=== PATIENT | female | born 1955 | race Caucasian/White ===

== ENCOUNTER 2019-03-04 06:31 | Day surgery (SDC) | payer MEDICARE, OTHER ==
[2019-03-04] MEDS ORDERED: Sodium Tetradecyl Sulfate 1% 20 MG/2 ML SDV ONE (06:46)
[2019-03-04] MEDS ORDERED: Sodium Chloride 0.9% 10 ML ONE (06:46)
[2019-03-04] MEDS ORDERED: Lidocaine 1% with EPINEPHrine 1:100,000 50 ML MDV ONE (06:47)
[2019-03-04] MEDS ORDERED: Sodium Chloride 0.9% 1,000 ML IV SCH (07:00)
[2019-03-04] MEDS ORDERED: Midazolam 1 MG/ML 2 ML SDV ONE (07:26)
[2019-03-04] MEDS ORDERED: Propofol 200 MG/20 ML SDV ONE ×2 (07:26→08:23)
[2019-03-04] MEDS ORDERED: fentaNYL 100 MCG/2 ML SDV ONE (07:26)
[2019-03-04] MEDS: Lidocaine 1% w/EPINEPHrine 50 ML, Sodium Bicarbonate 5 MEQ in Sodium Chloride 0.9% 950 ML INJECT SCH ×2 (08:05→08:45)
--- NOTE | 2019-03-05 08:50 | OR ---
DATE OF PROCEDURE: 03/04/2019 SURGEON: Anton Mooney MD PROCEDURES: 1. Radiofrequency ablation of left greater saphenous vein. 2. Radiofrequency ablation of right greater saphenous vein. 3. Sclerotherapy left leg, multiple. 4. Sclerotherapy right leg, multiple. 5. Compression wrap, left leg ([id number]). 6. Compression wrap, right leg ([id number]). COMPLICATIONS: None. THREAD CUTTER: None. ANESTHETIC: Mac/local. PREOPERATIVE DIAGNOSIS: Venous insufficiency with inflammation and pain. POSTOPERATIVE DIAGNOSIS: Venous insufficiency with inflammation and pain. RISKS: Risks, benefits, alternatives, and limitations including, but limited to infection, bleeding, perforation, and DVT formation were explained to the patient who wished to proceed. PROCEDURE IN DETAIL: The patient was placed in supine position. The left GSV was accessed at the level of the lower leg using a 21-gauge needle exchanged for a 35,000th wire, then exchanged for a 7-Tristanian sheath. RFA probe was advanced to greater than 3 cm from the saphenofemoral junction. Tumescent fluid was injected in a 1-cm jacket around this and verified a second and a third time. The probe was deployed x2 proximally and distally and x1 in all other segments. Direct even pressure was held as the probe was deployed. The right leg was then performed in same manner, same fashion, same technique, in the same sequence using the same equipment. Sclerotherapy was then performed on left and right legs using 0.33% sodium tetradecyl. This was drawn back to ensure intravascular injection only. No more than 2 mL was injected in one location, 4 on the right and 4 on the left. Two-layer two-stage compression wrapping was then performed in a [id number] fashion. Distal-to proximal gradient with 20 mmHg pressure. The patient tolerated the procedure well. Anton Mooney MD /[id number]
== END 2019-03-04 11:23 | disposition home or self-care (01) ==
LOC: JP.SDS 06:31
PROVIDERS: ATTEND Surgery
DX: I83.12 Varicose veins of left lower extremity with inflammation (principal); I83.11 Varicose veins of right lower extremity with inflammation; I83.813 Varicose veins of bilateral lower extremities with pain; I10 Essential (primary) hypertension; F41.9 Anxiety disorder, unspecified; Z79.82 Long term (current) use of aspirin; Z79.899 Other long term (current) drug therapy
CPT/HCPCS: 36471; 36475; J1642; J2250; J2704; J3010; J7030; J3490

== ENCOUNTER 2020-02-09 19:15 | Emergency (ER) | payer MEDICARE, OTHER ==
--- NOTE | 2020-02-09 20:12 | EDM.PDOC ---
ED HPI GENERAL MEDICAL PROBLEM - General Chief Complaint: Lower Extremity Injury/Pain Stated Complaint: FALL Time Seen by Provider: 02/09/20 20:07 Source of Information: Reports: Patient History Limitations: Reports: No Limitations - History of Present Illness INITIAL COMMENTS - FREE TEXT/NARRATIVE: pt was going up the steps and fell and landed on her left knee. She now has sw elling. over the left knee cap. She did have a total joint done about 3 years ago. Onset: Today, Other ( happened about 7 pm. She is now developing swelling over the knee cap area. 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: , 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 (See Below) 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 OPERATOR 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: 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 Musculoskeletal History: Reports: Arthritis, Fracture Psychiatric History: Reports: Anxiety - Past Surgical History Female Surgical History: Reports: Hysterectomy Musculoskeletal Surgical History: Reports: Arthroscopic Knee, Knee Replacement Other Musculoskeletal Surgeries/Procedures:: left knee replacement Social & Family History - Family History Family Medical History: Unobtainable - Tobacco Use Smoking Status *Q: Current Every Day Smoker Years of Tobacco use: 50 Packs/Tins Daily: 0.1 - Caffeine Use Caffeine Use: Reports: Coffee - Recreational Drug Use Recreational Drug Use: No Review of Systems - Review of Systems Review Of Systems: See Below Constitutional: Reports: No Symptoms Eyes: Reports: No Symptoms Ears: Reports: No Symptoms Nose: Reports: No Symptoms Mouth/Throat: Reports: No Symptoms Respiratory: Reports: No Symptoms Cardiovascular: Reports: No Symptoms GI/Abdominal: Reports: No Symptoms Genitourinary: Reports: No Symptoms Musculoskeletal: Reports: Other ( swelling over the left knee cap area. ) Skin: Reports: No Symptoms ED EXAM, GENERAL - Physical Exam Exam: See Below Free Text/Narrative:: pt arrived with swelling in the area belo the knee cap. Exam Limited By: No Limitations General Appearance: Alert, Anxious, Mild Distress Extremities: Other (pt has good range of motion of the knee. She is not having alot of pain with weight bearing. Pt had a total knee done 3 years ago. ) Course - Vital Signs Last Recorded V/S: Last Vital Signs Temp 36.5 C 02/09/20 19:32 Pulse 98 02/09/20 19:32 Resp 16 02/09/20 19:32 BP 186/106 H 02/09/20 19:32 Pulse Ox 99 02/09/20 19:32 - Orders/Labs/Meds Orders: Active Orders 24 hr Category Date Time Status Knee Min 4V Lt [CR] Stat Exams 02/09/20 20:04 Taken - Re-Assessments/Exams Free Text/Narrative Re-Assessment/Exam: 02/09/20 21:11 xray showed good position of the hardware, no fractures seen, Hematoma present below the knee cap. Departure - Departure Time of Disposition: 21:04 Disposition: Home, Self-Care 01 Condition: Fair Clinical Impression: Hematoma of left knee region - Discharge Information Instructions: Contusion, [id number] Referrals: Ike Huerta MD [Primary Care Provider] - Forms: ED Department Discharge Care Plan Goals: cool pack, limited weight bearing for the next 24 hours, the area will look bruised After the first 24-36 hours may ambulate as usual. Sepsis Event Note (ED) - Evaluation Sepsis Screening Result: No Definite Risk - Focused Exam Vital Signs: Vital Signs Temp Pulse Resp BP Pulse Ox 02/09/20 19:32 36.5 C 98 16 186/106 H 99 - My Orders Last 24 Hours: My Active Orders 02/09/20 20:04 Knee Min 4V Lt [CR] Stat - Assessment/Plan Last 24 Hours: My Active Orders 02/09/20 20:04 Knee Min 4V Lt [CR] Stat
--- NOTE | 2020-02-10 08:55 | CR ---
Knee Min 4V Lt CLINICAL HISTORY: Swelling near knee cap FINDINGS: Patient is a 3 component total knee arthroplasty. Components appear well seated. Impression: 3 component total knee arthroplasty appears intact
== END 2020-02-09 21:13 | disposition home or self-care (01) ==
LOC: JP.ED 19:15
DX: S80.02XA Contusion of left knee, initial encounter (principal); I10 Essential (primary) hypertension; F41.9 Anxiety disorder, unspecified; F17.210 Nicotine dependence, cigarettes, uncomplicated; Z79.899 Other long term (current) drug therapy; Z90.710 Acquired absence of both cervix and uterus; W10.9XXA Fall (on) (from) unspecified stairs and steps, initial encounter
CPT/HCPCS: 73564-26-LT; 73564-LT; 99283-25

== ENCOUNTER 2020-10-22 09:52 | Inpatient (IN) | payer MEDICARE, OTHER ==
--- NOTE | 2020-10-22 10:44 | EDM.PDOC ---
ED HPI GENERAL MEDICAL PROBLEM - General Chief Complaint: Abdominal Pain Stated Complaint: LOW STOMACH PAIN Time Seen by Provider: 10/22/20 10:30 Source of Information: Reports: Patient, Family History Limitations: Reports: No Limitations - History of Present Illness INITIAL COMMENTS - FREE TEXT/NARRATIVE: 65-year-old female with left lower quadrant pain for the past 4 days, she had a significant flareup of pain 4 days ago which with a fever, but it seemed to improve over the next couple days but over the last 12 to 24 hours has gotten much worse. She has a history of diverticulitis, it feels similar. Mild nausea, no vomiting, some radiation of pain to the back, she is still having bowel movements but it is painful. No blood in the stool. Duration: Waxing/Waning Location: Reports: Abdomen (Especially left lower quadrant) Associated Symptoms: Reports: Fever/Chills, Loss of Appetite, Malaise - Related Data Allergies Allergy/AdvReac Type Severity Reaction Status Date / Time No Known Allergies Allergy Verified 02/09/20 19:27 Home Meds: Home Meds buPROPion HCL [Wellbutrin Xl] 150 mg PO DAILY 03/02/19 [History] traMADol [Ultram] 50 mg PO Q6H PRN 03/02/19 [History] Lisinopril 20 mg PO DAILY 03/04/19 [History] Acetaminophen [Tylenol Extra Strength] 1,000 mg PO ASDIRECTED 10/22/20 [History] Past Medical History HEENT History: Reports: Sinusitis Cardiovascular History: Reports: Hypertension Gastrointestinal History: Reports: Diverticulosis 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: , 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 (See Below) 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 TRAINING 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 SPECIALIST History: 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 Musculoskeletal History: Reports: Arthritis, Fracture Psychiatric History: Reports: Anxiety - Past Surgical History GI Surgical History: Reports: Colonoscopy Female Surgical History: Reports: Hysterectomy Musculoskeletal Surgical History: Reports: Arthroscopic Knee, Knee Replacement Other Musculoskeletal Surgeries/Procedures:: left knee replacement Social & Family History - Family History Family Medical History: Unobtainable - Tobacco Use Tobacco Use Status *Q: Never Tobacco User - Caffeine Use Caffeine Use: Reports: Coffee ED ROS GENERAL - Review of Systems Review Of Systems: See Below Constitutional: Reports: Fever, Chills, Malaise, Decreased Appetite Respiratory: Denies: Shortness of Breath Cardiovascular: Denies: Chest Pain GI/Abdominal: Reports: Abdominal Pain, Nausea. Denies: Constipation, Diarrhea, Hematochezia, Vomiting : Reports: No Symptoms Skin: Denies: Rash Neurological: Reports: Other (Has been having some increased sciatic issues over the past week) ED EXAM, GI/ABD - Physical Exam Exam: See Below Exam Limited By: No Limitations General Appearance: Alert, Anxious, Mild Distress Eyes: Bilateral: Normal Appearance (No jaundice) Head: Atraumatic Respiratory/Chest: No Respiratory Distress, Lungs Clear Cardiovascular: Regular Rate, Rhythm. No: Tachycardia GI/Abdominal Exam: Rebound, Tender, Other (Very tender abdomen, significant guarding and rebound tenderness across the left abdomen especially the left lower quadrant. She has unnoticeable mass in the left inguinal area that is very tender, an obvious incarcerated hernia) Extremities: No: Pedal Edema Neurological: Alert, Oriented Psychiatric: Anxious Skin Exam: Warm, Dry Course - Vital Signs Last Recorded V/S: Last Vital Signs Temp 95.9 F L 10/22/20 16:20 Pulse 73 10/22/20 16:20 Resp 16 10/22/20 16:20 BP 143/56 H 10/22/20 16:20 Pulse Ox 94 L 10/22/20 16:21 - Orders/Labs/Meds Orders: Active Orders 24 hr Category Date Time Status CULTURE ANAEROBIC [RM] Routine Lab 10/22/20 14:09 Received CULTURE WOUND + SMEAR [RM] Routine Lab 10/22/20 14:02 Results Medication Orders Acetaminophen (Acetaminophen 500 Mg Tab) 1,000 mg PO Q8H GILDARDO Acetaminophen (Acetaminophen 500 Mg Tab) 500 mg PO Q8H PRN PRN Reason: MILD PAIN Bupropion HCl (Bupropion 150 Mg Tab.Er) 150 mg PO DAILY GILDARDO Celecoxib (Celecoxib 200 Mg Cap) 200 mg PO BID GILDARDO Cyclobenzaprine HCl (Cyclobenzaprine 10 Mg Tab) 10 mg PO Q8H PRN PRN Reason: Muscle Spasm Diphenhydramine HCl (Diphenhydramine 50 Mg/Ml Sdv) 50 mg IVPUSH Q4H PRN PRN Reason: ITCHING Hydromorphone HCl (Hydromorphone/Normal Saline 15 Mg/30 Ml Swamper) 0 mg IV ASDIRECTED PRN; Protocol PRN Reason: WINDOW SHADE RING SEWER PAIN CONTROL Last Admin: 10/22/20 16:14 Dose: 15 mg Documented by: SWANRHO Hydroxyzine HCl (Hydroxyzine Hcl 100 Mg/2 Ml Sdv) 100 mg IM Q4H PRN PRN Reason: breakthrough pain Meropenem 500 mg/ Sodium (Chloride) 50 mls @ 100 mls/hr IV Q6H [facility] Stop: 10/23/20 18:59 Dextrose/Lactated Ringer's (Dextrose 5%-Lactated Ringers) 1,000 mls @ 150 mls/hr IV ASDIRECTED [facility] Multivitamins/Minerals 10 ml/Thiamine HCl 200 mg/ Zinc 1 ml / Dextrose/Lactated Ringer's 1,013 mls @ 150 mls/hr IV DAILY@1600 [facility] Stop: 10/23/20 22:46 Labetalol HCl (Labetalol 20 Mg/4 Ml Syringe) 5 mg IVPUSH Q5M PRN PRN Reason: SBP over 160 OR DBP over 95 Lisinopril (Lisinopril 20 Mg Tab) 20 mg PO DAILY [facility] Metoclopramide HCl (Metoclopramide 10 Mg/2 Ml Sdv) 10 mg IVPUSH Q6H PRN PRN Reason: NAUSEA NOT CONTROL BY ZOFRAN Naloxone HCl (Naloxone 0.4 Mg/Ml Sdv) 0.1 mg IV ASDIRECTED PRN PRN Reason: decreased respiratory rate Ondansetron HCl (Ondansetron 4 Mg/2 Ml Sdv) 4 mg IVPUSH Q4H PRN PRN Reason: Nausea/Vomiting Pantoprazole Sodium (Pantoprazole 40 Mg Vial) 40 mg IVPUSH Q24H [facility] Labs: Laboratory Tests 10/22/20 10/22/20 Range/Units 10:50 10:50 WBC 8.0 (4.5-11.0) K/uL RBC 4.56 (3.30-5.50) M/uL Hgb 13.6 (12.0-15.0) g/dL Hct 42.1 (36.0-48.0) % MCV 92 (80-98) fL MCH 30 (27-31) pg MCHC 32 (32-36) % Plt Count 265 (150-400) K/uL Neut % (Auto) 79 H (36-66) % Lymph % (Auto) 13 L (24-44) % [place] % (Auto) 6 (2-6) % Eos % (Auto) 1 L (2-4) % Baso % (Auto) 0 (0-1) % Sodium 146 (140-148) mmol/L Potassium 4.7 (3.6-5.2) mmol/L Chloride 106 (100-108) mmol/L Carbon Dioxide 25 (21-32) mmol/L Anion Gap 15.3 H (5.0-14.0) mmol/L BUN 30 H (7-18) mg/dL Creatinine 1.2 H (0.6-1.0) mg/dL Est Cr Clr Drug Dosing 44.24 mL/min Estimated GFR (MDRD) 45 L (>60) Glucose 126 H (74-106) mg/dL Calcium 9.1 (8.5-10.1) mg/dL Meds: Medications Generic Name Dose Route Start Last Admin Trade Name Freq PRN Reason Stop Dose Admin Acetaminophen 1,000 mg 10/22/20 18:00 Acetaminophen 500 Mg Tab PO Q8H [facility] Acetaminophen 500 mg 10/22/20 17:00 Acetaminophen 500 Mg Tab PO Q8H PRN MILD PAIN Bupropion HCl 150 mg 10/23/20 09:00 Bupropion 150 Mg Tab.Er PO DAILY [facility] Celecoxib 200 mg 10/23/20 09:00 Celecoxib 200 Mg Cap PO BID [facility] Cyclobenzaprine HCl 10 mg 10/22/20 16:15 Cyclobenzaprine 10 Mg Tab PO Q8H PRN Muscle Spasm Diphenhydramine HCl 50 mg 10/22/20 17:00 Diphenhydramine 50 Mg/Ml Sdv IVPUSH Q4H PRN ITCHING Hydromorphone HCl 0 mg 10/22/20 16:13 10/22/20 16:14 Hydromorphone/Normal Saline 15 Mg/30 Ml Swamper IV 15 mg ASDIRECTED PRN Administration WINDOW SHADE RING SEWER PAIN CONTROL Protocol Hydroxyzine HCl 100 mg 10/22/20 17:00 Hydroxyzine Hcl 100 Mg/2 Ml Sdv IM Q4H PRN breakthrough pain Meropenem 500 mg/ Sodium 50 mls @ 100 mls/hr 10/22/20 18:30 Chloride IV 10/23/20 18:59 Q6H [facility] Dextrose/Lactated Ringer's 1,000 mls @ 150 mls/hr 10/22/20 16:15 Dextrose 5%-Lactated Ringers IV ASDIRECTED [facility] Multivitamins/Minerals 10 ml/ 1,013 mls @ 150 mls/hr 10/22/20 17:00 Thiamine HCl 200 mg/ Zinc 1 ml IV 10/23/20 22:46 / Dextrose/Lactated Ringer's DAILY@1600 [facility] Labetalol HCl 5 mg 10/22/20 17:00 Labetalol 20 Mg/4 Ml Syringe IVPUSH Q5M PRN SBP over 160 OR DBP over 95 Lisinopril 20 mg 10/23/20 09:00 Lisinopril 20 Mg Tab PO DAILY [facility] Metoclopramide HCl 10 mg 10/22/20 17:00 Metoclopramide 10 Mg/2 Ml Sdv IVPUSH Q6H PRN NAUSEA NOT CONTROL BY ZOFRAN Naloxone HCl 0.1 mg 10/22/20 17:00 Naloxone 0.4 Mg/Ml Sdv IV ASDIRECTED PRN decreased respiratory rate Ondansetron HCl 4 mg 10/22/20 17:00 Ondansetron 4 Mg/2 Ml Sdv IVPUSH Q4H PRN Nausea/Vomiting Pantoprazole Sodium 40 mg 10/22/20 17:00 Pantoprazole 40 Mg Vial IVPUSH Q24H [facility] Discontinued Medications Generic Name Dose Route Start Last Admin Trade Name Freq PRN Reason Stop Dose Admin Ropivacaine 40 ml/ 0 ml 10/22/20 14:00 10/22/20 14:00 Dexamethasone 8 mg/ NERVRT 80 syringe Epinephrine HCl 0.4 mg/ Sodium ASDIRECTED GILDARDO Administration Chloride 37.6 ml Dexamethasone Confirm 10/22/20 13:16 Dexamethasone 4 Mg/Ml Sdv Administered 10/22/20 13:17 Dose 4 mg .ROUTE .STK-MED ONE Fentanyl Confirm 10/22/20 13:16 Fentanyl 250 Mcg/5 Ml Sdv Administered 10/22/20 13:17 Dose 250 mcg .ROUTE .STK-MED ONE Fentanyl Confirm 10/22/20 15:00 Fentanyl 100 Mcg/2 Ml Sdv Administered 10/22/20 15:01 Dose 100 mcg .ROUTE .STK-MED ONE Glycopyrrolate Confirm 10/22/20 13:16 Glycopyrrolate 0.2 Mg/Ml 5 Ml Mdv Administered 10/22/20 13:17 Dose 1 mg .ROUTE .STK-MED ONE Hydromorphone HCl 0.5 mg 10/22/20 10:56 10/22/20 10:59 Hydromorphone 0.5 Mg/0.5 Ml Syringe IVPUSH 10/22/20 10:57 0.5 mg ONETIME ONE Administration Hydromorphone HCl 0.5 mg 10/22/20 11:45 10/22/20 11:49 Hydromorphone 0.5 Mg/0.5 Ml Syringe IVPUSH 10/22/20 11:46 0.5 mg ONETIME ONE Administration Hydromorphone HCl 0.5 mg 10/22/20 12:53 Hydromorphone 0.5 Mg/0.5 Ml Syringe IVPUSH 10/22/20 12:54 ONETIME ONE Sodium Chloride 1,000 mls @ 500 mls/hr 10/22/20 11:45 10/22/20 11:49 Normal Saline IV 500 mls/hr ASDIRECTED GILDARDO Administration Meropenem 500 mg/ Sodium 50 mls @ 100 mls/hr 10/22/20 12:34 10/22/20 13:17 Chloride IV 10/22/20 13:03 100 mls/hr ONETIME ONE Administration Lactated Ringer's Confirm 10/22/20 14:06 Ringers, Lactated Administered 10/22/20 14:07 Dose 1,000 mls @ as directed .ROUTE .STK-MED ONE Meropenem Confirm 10/22/20 14:07 10/22/20 14:31 Meropenem 500 Mg Sdv Administered 10/22/20 14:08 500 mg Dose Administration 500 mg .ROUTE .STK-MED ONE Neostigmine Methylsulfate Confirm 10/22/20 13:16 Neostigmine Methylsulfate 1 Mg/Ml 5 Ml Syringe Administered 10/22/20 13:17 Dose 5 mg .ROUTE .STK-MED ONE Ondansetron HCl Confirm 10/22/20 13:16 Ondansetron 4 Mg/2 Ml Sdv Administered 10/22/20 13:17 Dose 4 mg .ROUTE .STK-MED ONE Propofol Confirm 10/22/20 13:16 Propofol 200 Mg/20 Ml Sdv Administered 10/22/20 13:17 Dose 200 mg .ROUTE .STK-MED ONE Rocuronium Soso Confirm 10/22/20 13:16 Rocuronium 50 Mg/5 Ml Vial Administered 10/22/20 13:17 Dose 50 mg .ROUTE .STK-MED ONE Succinylcholine Chloride Confirm 10/22/20 13:16 Succinylcholine 200 Mg/10 Ml Mdv Administered 10/22/20 13:17 Dose 200 mg .ROUTE .STK-MED ONE - Re-Assessments/Exams Free Text/Narrative Re-Assessment/Exam: 10/22/20 11:34 CBC and CMP were drawn, IV was started and the patient was given some pain control. CT the abdomen and pelvis without contrast was ordered, results are still pending but the intra-abdominal findings were benign but the inguinal hernia was present with some stranding. 10/22/20 12:38 Labs were generally normal but CT showed the incarcerated hernia with small bowel findings of early obstruction. This was discussed with surgery, Dr. Kim agreed to see the patient for surgery, she will be given 500 mg of IV meropenem and a consent signed for surgical repair. Departure - Departure Time of Disposition: 13:33 Disposition: Admitted As Inpatient 64 Clinical Impression: Incarcerated left inguinal hernia Abdominal pain Qualifiers: Abdominal location: left lower quadrant Qualified Code(s): R10.32 - Left lower quadrant pain - Discharge Information Sepsis Event Note (ED) - Evaluation Sepsis Screening Result: No Definite Risk - Focused Exam Vital Signs: Vital Signs Temp Pulse Resp BP Pulse Ox 10/22/20 10:37 97.7 F 61 20 192/98 H 100 10/22/20 10:24 98.4 F 64 18 192/98 H 96
[2020-10-22] MEDS ORDERED: HYDROmorphone 0.5 MG/0.5 ML Syringe IVPUSH ONE ×3 (10:56→12:53)
[2020-10-22] MEDS ORDERED: Sodium Chloride 0.9% 1,000 ML IV SCH (11:45)
--- NOTE | 2020-10-22 12:16 | CRLCT ---
Indication: Left lower quadrant pain for 4 days Technique: Contrast and CT abdomen pelvis Comparison: CT abdomen pelvis 02/24/2019 Findings: The heart size is normal. The lung bases are clear. Pancreas gallbladder adrenal glands are unremarkable unenhanced liver appears unremarkable small low-density lesion in the peripheral light left hepatic lobe unchanged. No biliary dilatation. Gallbladder unremarkable adrenal glands unremarkable. Kidneys are unremarkable area of cortical scarring. Low-density lesion in the lateral right mid kidney incompletely assessed on this study, but likely not significantly changed from 2019. No hydronephrosis. Normal appendix. No abdominal aortic aneurysm. Urinary bladder unremarkable. Left inguinal hernia containing a loop of small bowel in the hernia sac. The small bowel loop is dilated and fluid-filled with inflammatory change within the hernia sac. The small bowel proximal to this is fluid-filled and slightly dilated. No suspicious bony lesions. Impression: 1. Left inguinal hernia containing a loop of small bowel with dilatation of the small bowel and inflammatory change and fluid within the hernia sac. Small bowel proximal to the hernia is mildly dilated likely reflecting mild obstruction. Surgical consultation is recommended. Please note that all CT scans at this facility use dose modulation, iterative reconstruction, and/or weight-based dosing when appropriate to reduce radiation dose to as low as reasonably achievable. Dictated by Kait Nagy MD @ 10/22/2020 12:16:[address] Kait Nagy @ Oct 22 2020 12:16PM
[2020-10-22] MEDS ORDERED: Meropenem 500 MG in Sodium Chloride 0.9% 50 ML IV ONE (12:34)
[2020-10-22] MEDS ORDERED: Ondansetron 4 MG/2 ML SDV ONE (13:16)
[2020-10-22] MEDS ORDERED: fentaNYL 250 MCG/5 ML SDV ONE (13:16)
[2020-10-22] MEDS ORDERED: Dexamethasone 4 MG/ML SDV ONE (13:16)
[2020-10-22] MEDS ORDERED: Rocuronium 50 MG/5 ML Vial ONE (13:16)
[2020-10-22] MEDS ORDERED: Neostigmine Methylsulfate 1 MG/ML 5 ML Syringe ONE (13:16)
[2020-10-22] MEDS ORDERED: Succinylcholine 200 MG/10 ML MDV ONE (13:16)
[2020-10-22] MEDS ORDERED: Glycopyrrolate 0.2 MG/ML 5 ML MDV ONE (13:16)
[2020-10-22] MEDS ORDERED: Propofol 200 MG/20 ML SDV ONE (13:16)
[2020-10-22] MEDS ORDERED: Ropivacaine 40 ML, dexAMETHasone 8 MG, EPINEPHrine 0.4 MG, Sodium Chloride 0.9% 37.6 ML NERVRT SCH ×4 (14:00)
[2020-10-22] MEDS ORDERED: Lactated Ringers 1,000 ML ONE (14:06)
[2020-10-22] MEDS ORDERED: Meropenem 500 MG SDV ONE (14:07)
[2020-10-22] MEDS ORDERED: fentaNYL 100 MCG/2 ML SDV ONE (15:00)
[2020-10-22] MEDS ORDERED: HYDROmorphone/Normal Saline 15 MG/30 ML PCA IV PRN (16:13)
[2020-10-22] MEDS ORDERED: Dextrose 5%-Lactated Ringers 1,000 ML IV SCH (16:15)
[2020-10-22] MEDS ORDERED: Acetaminophen 500 MG Tab PO PRN (17:00)
[2020-10-22] MEDS ORDERED: Labetalol 20 MG/4 ML Syringe IVPUSH PRN (17:00)
[2020-10-22] MEDS ORDERED: Metoclopramide 10 MG/2 ML SDV IVPUSH PRN (17:00)
[2020-10-22] MEDS ORDERED: MVI, Adult with Vitamin K 10 ML, Thiamine 200 MG, Zinc/Copper/Manganese/Selenium 1 ML i... IV SCH ×4 (17:00)
[2020-10-22] MEDS ORDERED: Pantoprazole 40 MG Vial IVPUSH SCH (17:00)
[2020-10-22] MEDS ORDERED: diphenhydrAMINE 50 MG/ML SDV IVPUSH PRN (17:00)
[2020-10-22] MEDS ORDERED: Ondansetron 4 MG/2 ML SDV IVPUSH PRN (17:00)
[2020-10-22] MEDS ORDERED: hydrOXYzine HCL 100 MG/2 ML SDV IM PRN (17:00)
[2020-10-22] MEDS ORDERED: Naloxone 0.4 MG/ML SDV IV PRN (17:00)
[2020-10-22] MEDS: Meropenem 500 MG in Sodium Chloride 0.9% 50 ML IV SCH (18:32)
[2020-10-22] MEDS: Acetaminophen 500 MG Tab PO SCH (18:42)
[2020-10-22] MEDS ORDERED: Benzocaine/Cetylpyridinium/Menthol Lozenge MUCMEM PRN (22:20)
[2020-10-23] MEDS: Meropenem 500 MG in Sodium Chloride 0.9% 50 ML IV SCH ×4 (00:04→17:30)
[2020-10-23] MEDS: Acetaminophen 500 MG Tab PO SCH ×3 (02:25→17:24)
[2020-10-23] MEDS: Cyclobenzaprine 10 MG Tab PO PRN ×2 (02:29→10:21)
[2020-10-23] MEDS: buPROPion 150 MG Tab.ER PO SCH (08:00)
[2020-10-23] MEDS: Lisinopril 20 MG Tab PO SCH (08:00)
[2020-10-23] MEDS: Celecoxib 200 MG Cap PO SCH ×2 (08:00→20:46)
--- NOTE | 2020-10-23 08:49 | PN ---
DATE OF SERVICE: 10/23/2020 SUBJECTIVE: Latricia is postoperative day. Her pain has been controlled. She has a Merchant catheter in and urine output has been adequate. REVIEW OF SYSTEMS: Remainder of review of systems negative for any pertinent positives and negatives. OBJECTIVE: GENERAL: Latricia Arroyo is a pleasant 65-year-old female. VITAL SIGNS: TPR is 97.5, 59, 16, blood pressure 125/46. HEENT: Negative. NECK: Supple. HEART: Regular rate and rhythm. LUNGS: Clear. ABDOMEN: Dressings dry and intact. Abdominal binder is on. EXTREMITIES: Without peripheral edema. ASSESSMENT: 1. Left inguinal exploration with: a. Repair of incarcerated left inguinal hernia without mesh. b. Excision of portion of the left ilioinguinal nerve. 2. Exploratory laparotomy with: a. Small-bowel resection. b. Drainage of possibly infection intraperitoneal (within hernia sac), inflamed fluid collection. c. Enterostomy for tube decompression, distended proximal bowel. d. Mobilization of omentum into pelvis. POSTOPERATIVE DIAGNOSES: 1. Incarcerated direct left inguinal hernia containing necrotic small bowel and intraperitoneal inflammatory fluid collection. 2. Small bowel obstruction secondary to small bowel incarceration and distended proximal small bowel. 3. Left ilioinguinal nerve at risk for scar entrapment. Date of procedure, 10/22/2020. Surgeon: Homer Kim MD. PLAN: 1. Schedule and have consent signed for delayed primary closure for both incisions with IV and local sedation TAP block. Date of procedure, 10/24/2020, 07:15. Homer Kim MD. 2. N.p.o. after midnight. 3. May change ABD dressing p.r.n. 4. Decrease IV to 100 mL per hour. 5. Clear liquid diet. 6. Melatonin 10 mg p.o. q.h.s. p.r.n. insomnia. 7. Leave Merchant catheter in for accurate intake and output. 8. Continue ambulation and use of incentive spirometer. 9. We will evaluate p.r.n. or in a.m. Humaira Unger PA-C /[id number]
[2020-10-23] MEDS: Dextrose 5%-Lactated Ringers 1,000 ML IV SCH (10:21)
[2020-10-23] MEDS ORDERED: MVI, Adult with Vitamin K 10 ML, Thiamine 200 MG, Zinc/Copper/Manganese/Selenium 1 ML i... IV SCH ×4 (16:00)
[2020-10-23] MEDS: Pantoprazole 40 MG Delayed-Release Granules 1 Packet PO SCH (16:21)
[2020-10-23] MEDS: Melatonin 3 MG Tab PO PRN (22:47)
[2020-10-24] MEDS: Acetaminophen 500 MG Tab PO SCH ×3 (02:27→17:58)
[2020-10-24] MEDS: Dextrose 5%-Lactated Ringers 1,000 ML IV SCH ×2 (02:31→08:54)
[2020-10-24] MEDS: Cyclobenzaprine 10 MG Tab PO PRN (02:39)
[2020-10-24] MEDS ORDERED: Bupivacaine 0.5% 50 ML MDV ONE (06:38)
[2020-10-24] MEDS ORDERED: Meropenem 500 MG SDV ONE (06:38)
[2020-10-24] MEDS ORDERED: Lidocaine 1% with EPINEPHrine 1:100,000 50 ML MDV ONE (06:38)
[2020-10-24] MEDS ORDERED: Propofol 200 MG/20 ML SDV ONE ×2 (06:51)
[2020-10-24] MEDS ORDERED: Midazolam 1 MG/ML 2 ML SDV ONE (06:52)
[2020-10-24] MEDS ORDERED: Ropivacaine 40 ML, dexAMETHasone 8 MG, EPINEPHrine 0.4 MG, Sodium Chloride 0.9% 37.6 ML NERVRT SCH ×4 (07:30)
[2020-10-24] MEDS: Lisinopril 20 MG Tab PO SCH (08:53)
[2020-10-24] MEDS: buPROPion 150 MG Tab.ER PO SCH (08:53)
[2020-10-24] MEDS: Celecoxib 200 MG Cap PO SCH ×2 (08:53→21:17)
[2020-10-24] MEDS ORDERED: oxyCODONE 5 MG Tab PO PRN (09:15)
[2020-10-24] MEDS: Docusate Sodium 100 MG Cap PO SCH ×2 (10:08→21:17)
[2020-10-24] MEDS: Bisacodyl 5 MG Tab PO SCH ×2 (10:08→21:17)
--- NOTE | 2020-10-24 11:45 | PN ---
DATE OF SERVICE: 10/24/2020 SUBJECTIVE: Latricia is n.p.o., going down for a delayed primary closure today. She has been up ambulating. Vital signs have been stable. Oral intake on the clear liquid diet 1300. Urine output 3200 via Merchant catheter. REVIEW OF SYSTEMS: Remainder of review of systems negative for any pertinent positives and negatives. OBJECTIVE: GENERAL: Latricia Arroyo is a pleasant 65-year-old female. She is alert and oriented. HEART: Regular rate and rhythm. LUNGS: Clear. ABDOMEN: Dressings dry and intact. Abdominal binder is on. EXTREMITIES: Without peripheral edema. ASSESSMENT: 1. Left inguinal exploration with: a. Repair of incarcerated left inguinal hernia without mesh. b. Excision of portion of the left ilioinguinal nerve. 2. Exploration with: a. Small bowel resection. b. Drainage of possibly infected intraperitoneal within hernia sac, inflamed fluid collection. c. Enterotomy for tube decompression, distended proximal bowel. d. Mobilization of omentum into pelvis. POSTOPERATIVE DIAGNOSES: 1. Incarcerated direct left inguinal hernia containing necrotic small bowel and intraperitoneal inflammatory fluid collection. 2. Small bowel obstruction secondary to small bowel incarceration and distended proximal small bowel. 3. Left ilioinguinal nerve at risk for scar entrapment. Date of procedure 10/22/2020. Surgeon: Homer Kim MD. PLAN: Orders to be written after delayed primary closure. Latricia will be started on a full- liquid diet, bowel stimulation. Merchant will be discontinued, and SCHOOL GUARD will be discontinued, and she will be started on oral pain meds. These orders to be written by Homer Kim MD. Continue use of incentive spirometer and ambulation. We will evaluate p.r.n. or in a.m. Humaira Unger PA-C /[id number]
[2020-10-24] MEDS ORDERED: Ondansetron 4 MG Tab.DIS PO PRN (16:42)
[2020-10-24] MEDS: Pantoprazole 40 MG Delayed-Release Granules 1 Packet PO SCH (17:58)
[2020-10-24] MEDS: Melatonin 3 MG Tab PO PRN (21:21)
[2020-10-25] MEDS: Acetaminophen 500 MG Tab PO SCH (01:57)
[2020-10-25] MEDS: Lisinopril 20 MG Tab PO SCH ×2 (07:54→09:13)
[2020-10-25] MEDS ORDERED: Magnesium Hydroxide 400 MG/5 ML Susp 30 ML Cup PO ONE (09:00)
[2020-10-25] MEDS: buPROPion 150 MG Tab.ER PO SCH (09:12)
[2020-10-25] MEDS: Docusate Sodium 100 MG Cap PO SCH (09:13)
[2020-10-25] MEDS: Bisacodyl 5 MG Tab PO SCH (09:13)
[2020-10-25] MEDS: Celecoxib 200 MG Cap PO SCH (09:13)
--- NOTE | 2020-10-25 13:46 | DISCH ---
ADMISSION DIAGNOSES: Abdominal pain, incarcerated direct left inguinal hernia. DISCHARGE DIAGNOSES: 1. Left inguinal exploration with: a. Repair of incarcerated left inguinal hernia without mesh. b. Excision of portion of the left ilioinguinal nerve. 2. Exploratory laparotomy with: a. Small-bowel resection. b. Drainage of possible infection intraperitoneal (within the hernia sac, inflamed fluid collection). c. Enterostomy for tube decompression, distended small bowel. d. Mobilization of omentum into pelvis. POSTOPERATIVE DIAGNOSES: 1. Incarcerated direct left inguinal hernia containing necrotic small bowel and intraperitoneal inflammatory fluid collection. 2. Small bowel obstruction secondary to small bowel incarceration and distended proximal small bowel. 3. Left ilioinguinal nerve at risk for scar entrapment. Date of procedure: 10/22/2020. Surgeon: Homer Kim MD. 4. Delayed primary closure for open abdominal incision on 10/24/2020. HISTORY: Latricia is a pleasant 65-year-old female who presented to the emergency room with severe abdominal pain. After preoperative evaluation and discussion of possible risks and possible complications, she wished to proceed with surgical procedure. HOSPITAL COURSE: Latricia had her surgery on 10/22/2020 on an emergent basis. She had no operative complications. On 10/24/2020, she had a delayed primary closure. Pain was well managed. Activity was good. She was passing flatus. Blood pressures were slightly elevated. She was taking her lisinopril. Latricia states that she thinks it will come down when she goes home. They have been ranging in the past 24 hours, 148 to 200/78 to 90. Activity has been good. Oral intake adequate. She was able to be discharged to home in stable condition. PHYSICAL EXAMINATION: GENERAL: Latricia Arroyo is a pleasant 65-year-old female. VITAL SIGNS: Height 5 feet 6.93 inches, weight is 177 pounds. TPR is 96.9, 72, 16, blood pressure 200/90. She was given her lisinopril and was rechecked an hour later, remained to be 200/90. HEENT: Negative. NECK: Supple. HEART: Regular rate and rhythm. LUNGS: Clear. ABDOMEN: Stapled incisions looks good. She does have a FERMIN drain in the inguinal incision and it has put out 45 mL of serosanguineous drainage. Abdominal binder is on. EXTREMITIES: Without peripheral edema. DISPOSITION: Discharged to home. CONDITION: Stable and improving. FOLLOWUP APPOINTMENT: With Humaira Unger PA-C, on 10/31/2020 at 9:30 a.m. HOME MEDICATIONS: 1. Celebrex 200 mg p.o. b.i.d. #28. 2. Colace 100 mg p.o. b.i.d. #60. 3. Two doses of milk of mag were sent home with the patient to take 1 daily for constipation if needed. 4. To resume home medications: a. Lisinopril 20 mg daily. b. Tylenol 1000 mg every 6 hours. c. Ultram 50 mg every 6 hours p.r.n. pain. d. Wellbutrin 150 mg p.o. daily. DIET: Regular diet as tolerated. Drink 8 to 10 glasses of water a day. ACTIVITY: No lifting greater than 10 pounds for 6 weeks. Walk at least 6 times daily inside your home. Driving: Do not drive for 1 week. Shower/bathing: May shower. Keep operative site clean and dry. Wear abdominal binder for 6 weeks and then as tolerated. DISCHARGE INSTRUCTIONS: Notify provider if fever, increased pain, swelling, redness, drainage, nausea, or vomiting. SPECIAL INSTRUCTION: 1. Use incentive spirometer 10 times every hour while awake for 1 week. 2. Strip, empty, measure, and record FERMIN drain 4 times a day. Bring record of FERMIN drainage to clinic. /[id number]
--- NOTE | 2020-11-05 10:55 | OR ---
DATE OF PROCEDURE: 10/22/2020 SURGEON: Homer Kim MD PREOPERATIVE DIAGNOSES: Incarcerated left inguinal hernia with associated small bowel obstruction. POSTOPERATIVE DIAGNOSES: 1. Incarcerated direct left inguinal hernia containing necrotic small bowel and intraperitoneal inflammatory fluid collection. 2. Small bowel obstruction secondary to small bowel incarceration with distended proximal small bowel. 3. Left ilioinguinal nerve at risk for scar entrapment. OPERATIVE PROCEDURE: 1. Left inguinal exploration with: a. Repair of incarcerated left inguinal hernia (no mesh placed) (97423). b. Excision of portion of left ilioinguinal nerve (58099). 2. Exploratory laparotomy with: a. Small bowel resection (95088). b. Drainage of possibly infected intraperitoneal inflammatory fluid collection (79995). c. Enterotomy for tube decompression of distended proximal small bowel (10501). d. Mobilization of omentum into pelvis to limit adhesion formation between pelvic, abdominal wall, and underlying viscera (54083). RIBBING MACHINE OPERATOR: Humaira Unger PA-C ANESTHESIA: General. INDICATIONS FOR PROCEDURE: This is a 65-year-old female presenting to the emergency room with a several-day history of some intermittent increasing pain in the left inguinal area. On presentation, the patient had an obviously incarcerated left inguinal hernia. CT scan showed a small bowel obstruction with small bowel entering the area of herniation and a distended proximal small bowel. Plan is to proceed with a left inguinal exploration with repair of the hernia. In all likelihood, mesh will not be used due to some likelihood of transmural migration of bacteria through the small bowel incarcerated within it. She is also aware of possible need for concurrent laparotomy with small bowel resection depending on the operative findings, i.e., specifically if there is necrotic or highly ischemic small bowel that would require resection, thus it can be mobilized upwards into the level of the hernia. A separate laparotomy would be required for resection of that segment of bowel. Potential risks of the procedure including bleeding, infection, injury to underlying viscera, leaks from various GI tract closures, recurrence of hernia, as well as possibility of cardiopulmonary, septic, or hemorrhagic complications leading to were all discussed, and the patient wishes to proceed. DETAILS OF PROCEDURE: The patient was taken to the operating room, and after general endotracheal anesthesia was induced, a Merchant catheter was inserted, and the abdomen prepped and draped. Initially, a left inguinal incision was made and carried down through the skin, subcutaneous tissue, and through the external oblique aponeurosis. Subaponeurotic flaps were then raised superiorly and inferiorly. Within the hernia site, there was obviously some necrotic small bowel. This was dark maroon in color and obviously had undergone an area of hemorrhagic necrosis. This was not mobilizable up into the field, and given this, had some packing over the hernia site where it was placed. The hernia could not be reduced from this vantage point. Lower midline incision from the umbilicus down to the pubis was made and carried out through the full-thickness abdominal wall. Upon entering the peritoneal cavity, the patient was found to have quite a bit in the way of distended proximal small bowel. The small bowel was then somewhat pushing some of the contents within the incarcerated hernia into the more distal small bowel. This allowed eventual reduction of small bowel. A red-tinged inflammatory fluid collection with obvious peritonitis within the hernia sac was identified, and cultures of this were obtained as it was evacuated. Once the small bowel was reduced, the proximal and distal ends of the small bowel at a point where it became viable adjacent to the area of necrosis were divided with GINNY marilin as was the underlying mesentery, and this segment of small bowel delivered from the field. To facilitate a safer anastomosis, an enterotomy was then placed in the proximal divided small bowel and [place] sump tube placed. A large amount of fluid and air were then evacuated decompressing the small bowel proximally. A [id number] enteroenterostomy was then accomplished between these 2 ends of divided small bowel with internal firing of the GINNY 60 mm stapler followed by a 30 mm stapler. Common opening was then closed transversely with a GINNY stapler as well. Angles anastomosed, mesenteric defect approximated with some 3-0 Vicryl stitch. At this point, the abdomen was irrigated with meropenem-containing saline solution. The omentum was then mobilized downwards into the pelvis to limit adhesion formation between the pelvic and abdominal wall and underlying viscera with suturing in that location with some 3-0 Vicryl stitch to the adjacent peritoneal surfaces. At that point, the midline fascia was then approximated with #2 Vicryl stitch. Skin and subcutaneous tissue were left open for delayed primary closure in 48 hours. Attention was then taken once again to the area of herniation. The hernia sac was then excised. The ilioinguinal nerve was noted to be passing into the area of the repair, and portion of this was excised to avoid problems with scar entrapment around the ilioinguinal nerve and associated chronic pain. A mid plane type repair was then accomplished with a running #1 Vicryl stitch beginning suturing this conjoined tendon to the Oliver's ligament medially, then transitioned over to the shelving portion of the inguinal ligament laterally. The round ligament had been divided, so that the complete closure of the inguinal floor was accomplished, and at that point, the external oblique aponeurosis was approximated with 3-0 Vicryl stitch. The subcutaneous tissue was then packed open likewise for a delayed primary closure in 48 hours. Prior to closure of the abdomen, bilateral transversus abdominis plane blocks were placed, and the patient was taken to the recovery room in satisfactory condition. Physician printing bindery assistant, Humaira Unger, played an essential role in assisting in this case, helping to position the patient, retract structures as needed, as well as suturing and cutting sutures when indicated. Her presence improved patient safety and decreased operative time. Homer Kim MD /[id number]
== END 2020-10-25 11:00 | disposition home or self-care (01) | DRG 329 ==
LOC: JP.ED 09:52 → JP.SDS 12:52 → UNDOADMIN 15:20 → JP.MS 15:20 → UNDODISIN 10-25 11:00
PROVIDERS: ADMIT Surgery; ATTEND Surgery
PROC: 0DB80ZZ Excision of Small Intestine, Open Approach (ICD-10-PCS; principal; 2020-10-22)
PROC: 0WQF0ZZ Repair Abdominal Wall, Open Approach (ICD-10-PCS; 2020-10-22)
PROC: 0W9G0ZZ Drainage of Peritoneal Cavity, Open Approach (ICD-10-PCS; 2020-10-22)
PROC: 01BB0ZZ Excision of Lumbar Nerve, Open Approach (ICD-10-PCS; 2020-10-22)
PROC: 3E0M05Z Introduction of Adhesion Barrier into Peritoneal Cavity, Open Approach (ICD-10-PCS; 2020-10-22)
DX: K40.30 Unilateral inguinal hernia, with obstruction, without gangrene, not specified as recurrent (principal); K55.021 Focal (segmental) acute infarction of small intestine; K56.609 Unspecified intestinal obstruction, unspecified as to partial versus complete obstruction; I10 Essential (primary) hypertension; K57.30 Diverticulosis of large intestine without perforation or abscess without bleeding; M19.90 Unspecified osteoarthritis, unspecified site; F41.9 Anxiety disorder, unspecified; K57.90 Diverticulosis of intestine, part unspecified, without perforation or abscess without bleeding; Z96.652 Presence of left artificial knee joint; Z79.899 Other long term (current) drug therapy; Z90.710 Acquired absence of both cervix and uterus
CPT/HCPCS: 36415; 74176; 80048; 85025; 87070; 87075; 87205; 96365; 96375; 96376; 99285 ×2; J0171; J0330; J1100 ×2; J1170 ×2; J2185 ×2; J2405; J2704; J2710; J2795; J3010 ×2; J3490; J7030; J7120; 80053; 83735; 83880; 84100; 88302; 88307; 94762; A9270-GY; C9113; J2250; J3411; J7121